=== PATIENT | male | born 1995 | race Caucasian/White ===

== ENCOUNTER → 2021-10-18 | Day surgery (SDC) | payer OTHER ==
[~2021-10-18] MED LIST: FLEXERIL 10 MG10 MG PO; HYDROCODON-ACE1 EAC4 PO; IBUPROFEN600 MG PO; PREDNISONE 50 M50 MG PO
== END | disposition home or self-care (01) ==
LOC: OR 08:22
DX: L05.91 Pilonidal cyst without abscess (principal); F17.200 Nicotine dependence, unspecified, uncomplicated; Z88.1 Allergy status to other antibiotic agents
CPT/HCPCS: J0690; J1100; J1170; J1885; J2001; J2250; J2405; J2704; J3010